=== PATIENT | female | born 1960 | race Two or more races ===

== ENCOUNTER 2021-01-18 04:41 | Inpatient (IN) | payer OTHER, MEDICAID ==
[~2021-01-18] VITALS: Ht 157.5 cm; Wt 77.9 kg
[~2021-01-18 04:41] MED LIST: CALC0.5C PO; CARV25TA55 PO; CLON0.2T PO; FURO1TAB31 PO; HYDR50TA15 PO; NIFE1TAB30 PO; OMEP20TA85 PO; Paroxetine PO; SEVE800T8 PO; SIMV-8 PO; TERA2CAP45 PO
[2021-01-18] MEDS ORDERED: CALCIUM GLUC 1,000mg/50ml-NS 50 ML IV ONE (05:15)
[2021-01-18] MEDS ORDERED: ATROPINE SULF 1 MG/10ml SYR IV ONE (05:15)
[2021-01-18] MEDS ORDERED: ATROPINE SULFATE 1 MG/1 ML VIAL ONE (05:26)
[2021-01-18 05:43] LABS: Albumin 2.8 g/dL (3.4-5.0); Anion Gap 15 (5-15); Blood Urea Nitrogen 53 mg/dL (7-18); Calcium 7.3 mg/dL (8.5-10.1); Carbon Dioxide 21 mmol/L (21-32); Chloride 100 mmol/L (98-107); Glucose 308 mg/dL (74-106); Sodium 136 mmol/L (136-145)
[2021-01-18 05:45] LABS: Alanine Aminotransferase 7 U/L (13-56); Aspartate Aminotransferase 12 U/L (15-37); BUN/Creatinine Ratio 7.5; GFR African American 8 mL/min; GFR Non-African American 6 mL/min
[2021-01-18 05:48] LABS: Basophils # (auto) 0 10 ^3/uL (0-0.2); Basophils % (auto) 1.1 % (0.0-2.0); Eosinophils # (auto) 0.1 10 ^3/uL (0-0.8); Eosinophils % (auto) 1.8 % (0.0-7.0); Hematocrit 28.9 % (36.0-46.0); Hemoglobin 9.7 g/dL (12.2-16.2); Lymphocytes # (auto) 1.3 10 ^3/uL (0.4-5.4); Lymphocytes % (auto) 29.2 % (10.0-50.0); Mean Corpuscular Hemoglobin 33.2 pg (28.0-32.0); Mean Corpuscular Hgb Conc. 33.7 g/dL (32.0-36.0); Mean Corpuscular Volume 98.7 fL (80.0-100.0); Monocytes # (auto) 0.4 10 ^3/uL (0-1.3); Monocytes % (auto) 9.1 % (0.0-12.0); Neutrophils # (auto) 2.6 10 ^3/uL (1.6-8.6); Neutrophils % (auto) 58.8 % (37.0-80.0); Nucleated Red Blood Cells % 0.2 %; Red Blood Cells 2.93 10^6/uL (4.0-5.20); Red Cell Distribution Width 14.2 % (11.8-14.3); White Blood Cell 4.4 10^3/uL (4.4-10.8)
[2021-01-18 05:50] LABS: Alkaline Phosphatase 161 U/L (45-117); Bilirubin, Total 0.6 mg/dL (0.2-1.0); Total Protein 6.6 g/dL (6.4-8.2)
[2021-01-18] MEDS ORDERED: INSULIN LISPRO (HUMAN) 100 UNITS/ML ML SC ONE (07:45)
[2021-01-18] MEDS ORDERED: MORPHINE SULFATE INJECTION 2 MG/ML SYRG IV ONE (08:45)
[2021-01-18] MEDS ORDERED: ONDANSETRON HCL 4 MG/2 ML VIAL IV ONE (08:45)
[2021-01-18] MEDS ORDERED: cefTRIAXone 1GM/50ML D5W 50 ML IV ONE (12:00)
[2021-01-18] MEDS ORDERED: NITROGLYCERIN 0.4 MG SL TAB SL PRN (12:45)
[2021-01-18] MEDS ORDERED: MORPHINE SULFATE INJECTION 2 MG/ML SYRG IV PRN (12:45)
[2021-01-18] MEDS ORDERED: DEXTROSE (50%) 50ML SYRG IV PRN (13:00)
[2021-01-18] MEDS ORDERED: LACTULOSE 20Gm/30ML SOLN PO PRN (13:00)
[2021-01-18] MEDS ORDERED: ACETAMINOPHEN 500 MG TAB PO PRN (13:00)
[2021-01-18] MEDS ORDERED: ALBUTEROL SULF 2.5 MG/0.5ML(0.5%) NEB SOLN NEB PRN (13:00)
[2021-01-18] MEDS ORDERED: traMADol HCL 50 MG TAB PO PRN (13:00)
[2021-01-18] MEDS: SODIUM CHLOR 0.9% PF (SALINE LOCK) 10ML VIAL/SYR IV SCH ×2 (14:05→22:43)
[2021-01-18] MEDS: InsuLIN REG 1unit/0.01ml Soln (100units/ml) SC SCH ×2 (17:00→22:44)
[2021-01-18] MEDS: ACCU-CHEK COMFORT CURVE STRIP VI SCH ×2 (17:01→22:45)
[2021-01-18] MEDS ORDERED: IOHEXOL 350 MG/ML 100ML IJ ONE (17:41)
[2021-01-18] MEDS: IPRATROPIUM BROM 0.5 MG/2.5ML INH SOL NEB SCH (19:09)
[2021-01-18] MEDS: ALBUTEROL SULF 2.5 MG/0.5ML(0.5%) NEB SOLN NEB SCH (19:09)
[2021-01-18] MEDS: SEVELAMER 800 MG TAB PO SCH (19:39)
[2021-01-18] MEDS: ATORVASTATIN 20 MG TAB PO SCH (22:43)
[2021-01-19] MEDS: hydrALAZINE HCL 20 MG/ML VL IV PRN ×2 (01:07→17:41)
[2021-01-19] MEDS: ALBUTEROL SULF 2.5 MG/0.5ML(0.5%) NEB SOLN NEB SCH ×3 (05:54→20:15)
[2021-01-19] MEDS: IPRATROPIUM BROM 0.5 MG/2.5ML INH SOL NEB SCH ×3 (05:54→20:15)
[2021-01-19] MEDS: SODIUM CHLOR 0.9% PF (SALINE LOCK) 10ML VIAL/SYR IV SCH ×3 (06:30→22:19)
[2021-01-19 06:41] LABS: Basophils # (auto) 0.1 10 ^3/uL (0-0.2); Basophils % (auto) 1.3 % (0.0-2.0); Eosinophils # (auto) 0.2 10 ^3/uL (0-0.8); Eosinophils % (auto) 2.4 % (0.0-7.0); Hematocrit 29.1 % (36.0-46.0); Hemoglobin 9.8 g/dL (12.2-16.2); Lymphocytes # (auto) 1.3 10 ^3/uL (0.4-5.4); Lymphocytes % (auto) 20.7 % (10.0-50.0); Mean Corpuscular Hemoglobin 32.6 pg (28.0-32.0); Mean Corpuscular Hgb Conc. 33.5 g/dL (32.0-36.0); Mean Corpuscular Volume 97.5 fL (80.0-100.0); Monocytes # (auto) 0.7 10 ^3/uL (0-1.3); Monocytes % (auto) 11.4 % (0.0-12.0); Neutrophils # (auto) 4.1 10 ^3/uL (1.6-8.6); Neutrophils % (auto) 64.2 % (37.0-80.0); Nucleated Red Blood Cells % 0.1 %; Red Blood Cells 2.99 10^6/uL (4.0-5.20); Red Cell Distribution Width 14.1 % (11.8-14.3); White Blood Cell 6.4 10^3/uL (4.4-10.8)
[2021-01-19] MEDS: hydrALAZINE HCL 25 MG TAB PO SCH ×4 (06:47→23:18)
[2021-01-19] MEDS: InsuLIN REG 1unit/0.01ml Soln (100units/ml) SC SCH ×4 (06:55→22:00)
[2021-01-19] MEDS: ACCU-CHEK COMFORT CURVE STRIP VI SCH ×4 (06:56→22:20)
[2021-01-19 07:00] LABS: Chloride 97 mmol/L (98-107); Potassium 5.2 mmol/L (3.5-5.1); Sodium 133 mmol/L (136-145)
[2021-01-19 07:19] LABS: Alanine Aminotransferase < 6 U/L (13-56); Albumin 3.2 g/dL (3.4-5.0); Alkaline Phosphatase 153 U/L (45-117); Anion Gap 8 (5-15); Aspartate Aminotransferase 15 U/L (15-37); Bilirubin, Total 0.6 mg/dL (0.2-1.0); Blood Urea Nitrogen 65 mg/dL (7-18); Calcium 8.2 mg/dL (8.5-10.1); Carbon Dioxide 28 mmol/L (21-32); GFR African American 6 mL/min; GFR Non-African American 5 mL/min; Glucose 78 mg/dL (74-106); Total Protein 7.3 g/dL (6.4-8.2)
[2021-01-19] MEDS: cefTRIAXone 1GM/50ML D5W 50 ML IV SCH (08:27)
[2021-01-19] MEDS: SEVELAMER 800 MG TAB PO SCH ×3 (08:47→17:40)
[2021-01-19] MEDS: AZITHROMYCIN 500MG/ 250ML 250 ML IV SCH (09:01)
[2021-01-19] MEDS: ASPirin 81 mg TAB PO SCH (09:02)
[2021-01-19] MEDS: PARoxetine 20 MG TAB PO SCH (09:03)
[2021-01-19] MEDS: ENOXAPARIN SOD 30 MG/0.3 ML SYRINGE SC SCH (09:03)
[2021-01-19] MEDS: OMEPRAZOLE 20MG/10ML ORAL SUSP PO SCH (09:03)
[2021-01-19] MEDS ORDERED: OMEPRAZOLE 20 MG PO SCH (10:00)
[2021-01-19 11:00] VITALS: BP 148/73
[2021-01-19] MEDS ORDERED: CINA30TA2 PO (13:26)
[2021-01-19] MEDS ORDERED: CLON0.3D4 PO (13:26)
[2021-01-19] MEDS ORDERED: PAR20T PO (13:26)
[2021-01-19] MEDS ORDERED: NIFE90TA49 PO (13:26)
[2021-01-19] MEDS ORDERED: ASPI-543 PO (13:26)
[2021-01-19] MEDS ORDERED: SEVE800T PO (13:26)
[2021-01-19] MEDS ORDERED: GABA300C10 PO (13:26)
[2021-01-19] MEDS ORDERED: GLIP-110 PO (13:26)
[2021-01-19] MEDS ORDERED: CARV12.544 PO (13:26)
[2021-01-19 17:00] VITALS: BP 175/84
[2021-01-19] MEDS ORDERED: SODIUM CHL 0.9% 1000 ML BAG XX ONE (18:15)
[2021-01-19 18:29] VITALS: BP 149/65
[2021-01-19] MEDS ORDERED: EPOETIN ALFA-EPBX 4,000 UNIT/ML VIAL SC ONE (21:00)
[2021-01-19] MEDS: ATORVASTATIN 20 MG TAB PO SCH (21:15)
[2021-01-19 22:00] VITALS: BP 162/79
[2021-01-20] VITALS (7 sets, daily range): BP systolic 118–197; BP diastolic 59–90
[2021-01-20] MEDS: ALBUTEROL SULF 2.5 MG/0.5ML(0.5%) NEB SOLN NEB SCH ×5 (02:23→19:33)
[2021-01-20] MEDS: IPRATROPIUM BROM 0.5 MG/2.5ML INH SOL NEB SCH ×5 (02:23→19:33)
[2021-01-20] MEDS: hydrALAZINE HCL 20 MG/ML VL IV PRN ×3 (03:19→16:46)
[2021-01-20 05:33] LABS: Basophils # (auto) 0.1 10 ^3/uL (0-0.2); Basophils % (auto) 1.6 % (0.0-2.0); Eosinophils # (auto) 0.2 10 ^3/uL (0-0.8); Eosinophils % (auto) 2.1 % (0.0-7.0); Hematocrit 30.3 % (36.0-46.0); Hemoglobin 10.2 g/dL (12.2-16.2); Lymphocytes # (auto) 1.6 10 ^3/uL (0.4-5.4); Lymphocytes % (auto) 21.2 % (10.0-50.0); Mean Corpuscular Hemoglobin 32.7 pg (28.0-32.0); Mean Corpuscular Hgb Conc. 33.6 g/dL (32.0-36.0); Mean Corpuscular Volume 97.1 fL (80.0-100.0); Neutrophils # (auto) 4.6 10 ^3/uL (1.6-8.6); Neutrophils % (auto) 62.1 % (37.0-80.0); Red Blood Cells 3.12 10^6/uL (4.0-5.20); Red Cell Distribution Width 14.3 % (11.8-14.3); White Blood Cell 7.4 10^3/uL (4.4-10.8)
[2021-01-20 05:47] LABS: Albumin 3.2 g/dL (3.4-5.0); BUN/Creatinine Ratio 6.1; Calcium 8.8 mg/dL (8.5-10.1)
[2021-01-20] MEDS: hydrALAZINE HCL 25 MG TAB PO SCH ×3 (05:53→18:13)
[2021-01-20] MEDS: SODIUM CHLOR 0.9% PF (SALINE LOCK) 10ML VIAL/SYR IV SCH ×3 (06:00→22:44)
[2021-01-20 06:28] LABS: Bilirubin, Total 0.5 mg/dL (0.2-1.0); Total Protein 7.5 g/dL (6.4-8.2)
[2021-01-20] MEDS: InsuLIN REG 1unit/0.01ml Soln (100units/ml) SC SCH ×4 (06:39→22:00)
[2021-01-20] MEDS: ACCU-CHEK COMFORT CURVE STRIP VI SCH ×4 (06:40→22:44)
[2021-01-20] MEDS ORDERED: SODIUM CHL 0.9% 1000 ML BAG XX ONE (07:00)
[2021-01-20] MEDS: OMEPRAZOLE 20MG/10ML ORAL SUSP PO SCH (10:30)
[2021-01-20] MEDS ORDERED: NIFEdipine ER 30 MG TAB PO ONE (10:30)
[2021-01-20] MEDS: ENOXAPARIN SOD 30 MG/0.3 ML SYRINGE SC SCH (10:31)
[2021-01-20] MEDS: SEVELAMER 800 MG TAB PO SCH ×3 (10:31→18:05)
[2021-01-20] MEDS: ASPirin 81 mg TAB PO SCH (10:31)
[2021-01-20] MEDS: PARoxetine 20 MG TAB PO SCH (10:31)
[2021-01-20] MEDS: cefTRIAXone 1GM/50ML D5W 50 ML IV SCH (10:31)
[2021-01-20] MEDS: AZITHROMYCIN 500MG/ 250ML 250 ML IV SCH (12:14)
[2021-01-20] MEDS ORDERED: EPOETIN ALFA-EPBX 4,000 UNIT/ML VIAL SC ONE (21:00)
[2021-01-20] MEDS: ATORVASTATIN 20 MG TAB PO SCH (22:43)
[2021-01-21] MEDS: IPRATROPIUM BROM 0.5 MG/2.5ML INH SOL NEB SCH ×2 (00:13→06:25)
[2021-01-21] MEDS: ALBUTEROL SULF 2.5 MG/0.5ML(0.5%) NEB SOLN NEB SCH ×2 (00:13→06:25)
[2021-01-21] MEDS: hydrALAZINE HCL 25 MG TAB PO SCH ×2 (00:56→05:52)
[2021-01-21 05:00] VITALS: BP 135/76
[2021-01-21 05:45] LABS: Basophils # (auto) 0.1 10 ^3/uL (0-0.2); Basophils % (auto) 1.1 % (0.0-2.0); Eosinophils # (auto) 0.2 10 ^3/uL (0-0.8); Eosinophils % (auto) 2.7 % (0.0-7.0); Hematocrit 29.9 % (36.0-46.0); Hemoglobin 10.1 g/dL (12.2-16.2); Lymphocytes # (auto) 1.4 10 ^3/uL (0.4-5.4); Lymphocytes % (auto) 23.5 % (10.0-50.0); Mean Corpuscular Hemoglobin 32.4 pg (28.0-32.0); Mean Corpuscular Hgb Conc. 33.7 g/dL (32.0-36.0); Monocytes # (auto) 0.7 10 ^3/uL (0-1.3); Monocytes % (auto) 12.5 % (0.0-12.0); Neutrophils # (auto) 3.5 10 ^3/uL (1.6-8.6); Neutrophils % (auto) 60.2 % (37.0-80.0); Red Blood Cells 3.11 10^6/uL (4.0-5.20); White Blood Cell 5.9 10^3/uL (4.4-10.8)
[2021-01-21] MEDS: InsuLIN REG 1unit/0.01ml Soln (100units/ml) SC SCH (05:52)
[2021-01-21] MEDS: ACCU-CHEK COMFORT CURVE STRIP VI SCH (05:52)
[2021-01-21] MEDS: SODIUM CHLOR 0.9% PF (SALINE LOCK) 10ML VIAL/SYR IV SCH (05:52)
[2021-01-21 06:28] LABS: Chloride 92 mmol/L (98-107); Sodium 130 mmol/L (136-145)
[2021-01-21 06:48] LABS: Alanine Aminotransferase < 6 U/L (13-56); Albumin 3.3 g/dL (3.4-5.0); Alkaline Phosphatase 147 U/L (45-117); Anion Gap 8 (5-15); Aspartate Aminotransferase 11 U/L (15-37); BUN/Creatinine Ratio 6.1; Bilirubin, Total 0.7 mg/dL (0.2-1.0); Blood Urea Nitrogen 40 mg/dL (7-18); Calcium 8.8 mg/dL (8.5-10.1); Carbon Dioxide 30 mmol/L (21-32); GFR African American 8 mL/min; GFR Non-African American 7 mL/min; Glucose 116 mg/dL (74-106); Total Protein 7.5 g/dL (6.4-8.2)
[2021-01-21] MEDS: cefTRIAXone 1GM/50ML D5W 50 ML IV SCH (08:50)
[2021-01-21] MEDS: SEVELAMER 800 MG TAB PO SCH (08:50)
[2021-01-21] MEDS: PARoxetine 20 MG TAB PO SCH (08:51)
[2021-01-21] MEDS: ASPirin 81 mg TAB PO SCH (08:51)
[2021-01-21] MEDS: ENOXAPARIN SOD 30 MG/0.3 ML SYRINGE SC SCH (08:52)
[2021-01-21] MEDS: OMEPRAZOLE 20MG/10ML ORAL SUSP PO SCH (08:55)
[2021-01-21 09:01] VITALS: BP 147/64
[2021-01-21] MEDS ORDERED: NIFEdipine ER 30 MG TAB PO SCH (10:00)
== END 2021-01-21 10:56 | disposition home or self-care (01) | DRG 308 ==
LOC: ER 04:41 → EDBD 04:41 → TELE 12:39 → TELE-WESTW 01-19 09:59
PROVIDERS: ADMIT Internal Medicine; ATTEND Internal Medicine Geriatric Medicine
PROC: 5A1D70Z Performance of Urinary Filtration, Intermittent, Less than 6 Hours Per Day (ICD-10-PCS; principal; 2021-01-19)
DX: R00.1 Bradycardia, unspecified (principal); N18.6 End stage renal disease; E44.0 Moderate protein-calorie malnutrition; I12.0 Hypertensive chronic kidney disease with stage 5 chronic kidney disease or end stage renal disease; D63.1 Anemia in chronic kidney disease; I95.9 Hypotension, unspecified; E11.22 Type 2 diabetes mellitus with diabetic chronic kidney disease; E66.9 Obesity, unspecified; Z20.822 Contact with and (suspected) exposure to COVID-19; E78.5 Hyperlipidemia, unspecified; E87.5 Hyperkalemia; I25.2 Old myocardial infarction; Z80.3 Family history of malignant neoplasm of breast; Z83.3 Family history of diabetes mellitus; Z86.73 Personal history of transient ischemic attack (TIA), and cerebral infarction without residual deficits; Z99.2 Dependence on renal dialysis; Z88.8 Allergy status to other drugs, medicaments and biological substances; Z68.32 Body mass index [BMI] 32.0-32.9, adult
CPT/HCPCS: 36415; 71045; 71275; 80053; 82550; 82962; 83036; 83880; 84443; 84484; 85025; 85379; 85652; 86141; 87040; 87081; 87426; 90935; 93005; 93306; 94640; 96365; 96375; G0378; J0461; J0696; J1815; J2405